=== PATIENT | male | born 1935 | race Caucasian/White ===

== ENCOUNTER 2016-09-24 10:34 | Inpatient (IN) | payer OTHER ==
[~2016-09-24] VITALS: Ht 185.4 cm; Wt 84.1 kg
[~2016-09-24 10:34] MED LIST: AMIODARONE HCL200 MG PO; ASPIR-LOW81 MG PO; COLACE100 MG PO; COUMADIN,JANTO2.5 MG PO; DIGOX125 MCG PO; DIOVAN HCT 11 TABLE1 PO; DIOVAN HCT 80-1 EACH PO; ESOMEPRAZOLE MA40 MG PO; FLOMAX0.4 MG PO; LANOXIN,DIGI0.125 MG PO; LANOXIN125 MCG PO; LOVENOX40 MG/0.4 PO; METAMUCIL POWD798 GM PO; MIRALAX255 GM PO; NEXIUM40 MG PO; OXYCODONE5 MG PO; PRADAXA150 MG PO; PRAVASTATIN SOD40 MG PO; PRESERVISIO1 CAPSULE PO; PRESERVISION T1 EACH PO; SENOKOT,SENN1 TABLET PO; SIMVASTATIN10 M1 PO; TAMSULOSIN HCL0.4 MG PO; TYLENOL 8 HOUR650 MG PO; VALSARTAN-HCTZ1 EAC2 PO; VITAMIN B-1250 MG PO
[2016-09-24 12:36] LABS: EOSINOPHIL (%) 0.2 % (0-5); HEMATOCRIT 49.5 % (38.0-50.0); IMMATURE GRANULOCYTE (%) 0.4 % (0.0-0.7); INSTRUMENT ABS NEUTROPHIL CT 9.5 K/uL; LYMPHOCYTE COUNT 0.8 K/uL (1.0-2.8); MCH 33.5 PG (29.0-34.0); MCHC 33.9 G/DL (30.0-36.0); MCV 98.8 FL (86-99); MEAN PLAT.VOLUME 9.6 uM^3 (9.0-12.4); MONOCYTE (%) 5.5 % (3-12); MONOCYTE COUNT 0.6 K/uL (0-0.8); NEUTROPHIL (%) 86.3 % (45-76); NEUTROPHIL COUNT 9.5 K/uL (1.8-6.4); PLATELET COUNT 114 K/uL (156-360); RBC DIS.WIDTH-CV 12.6 % (11.8-14.6); RBC DIS.WIDTH-SD 45.9 % (39-53); RED BLOOD COUNT 5.01 M/uL (4.00-5.50)
[2016-09-24 12:50] LABS: CHLORIDE 92 mEq/L (99-109); POTASSIUM 3.4 mEq/L (3.7-5.4); SODIUM 129 mEq/L (136-147)
[2016-09-24 13:23] LABS: GLUCOSE 113 mg/dL (70-99)
[2016-09-24 13:24] LABS: ANION GAP 9 MEQ/L (2-14)
[2016-09-24 13:25] LABS: TOTAL BILIRUBIN 1.6 mg/dL (0.0-1.0)
[2016-09-24 13:26] LABS: ALKALINE PHOSPHATASE 52 IU/L (3-129)
[2016-09-24 13:27] LABS: GFR ESTIMATE (CALCULATED) > 59 mL/min/
[2016-09-24 13:28] LABS: UREA NITROGEN (BUN) 20 mg/dL (9-23)
[2016-09-24] MEDS ORDERED: XARELTO20 MG PO (16:49)
[2016-09-24] MEDS ORDERED: VITAMIN B122500 MCG PO (16:50)
[2016-09-25 00:10] VITALS: BP 136/82
[2016-09-25 06:51] LABS: HEMATOCRIT 46.1 % (38.0-50.0); MCH 33.7 PG (29.0-34.0); MCHC 33.6 G/DL (30.0-36.0); MCV 100.2 FL (86-99); MEAN PLAT.VOLUME 10.2 uM^3 (9.0-12.4); PLATELET COUNT 99 K/uL (156-360); RBC DIS.WIDTH-CV 12.8 % (11.8-14.6); RBC DIS.WIDTH-SD 47.6 % (39-53); WHITE BLOOD COUNT 8.2 K/uL (4.1-10.2)
[2016-09-25 07:13] LABS: ANION GAP 6 MEQ/L (2-14); CHLORIDE 101 MEQ/L (99-109); GFR ESTIMATE (CALCULATED) > 59 mL/min/; GLUCOSE 107 mg/dL (70-99); SAMPLE HEMOLYSIS CHECK 0; SAMPLE ICTERIC CHECK 0; SAMPLE LIPEMIA CHECK 0; UREA NITROGEN (BUN) 15 mg/dL (9-23)
[2016-09-25 07:14] LABS: POTASSIUM 4.1 MEQ/L (3.7-5.4); SODIUM 139 MEQ/L (136-147)
[2016-09-25 07:43] VITALS: BP 127/69
[2016-09-25 14:29] LABS: C DIFF TOXIN ND (NEGATIVE)
[2016-09-25 16:42] VITALS: BP 127/77
[2016-09-25 22:47] VITALS: BP 97/53
[2016-09-26 06:08] LABS: MCH 34.1 PG (29.0-34.0); MCHC 33.6 G/DL (30.0-36.0); MCV 101.4 FL (86-99); MEAN PLAT.VOLUME 10.6 uM^3 (9.0-12.4); PLATELET COUNT 92 K/uL (156-360); RBC DIS.WIDTH-CV 12.7 % (11.8-14.6); RBC DIS.WIDTH-SD 47.8 % (39-53); RED BLOOD COUNT 4.34 M/uL (4.00-5.50); WHITE BLOOD COUNT 9.1 K/uL (4.1-10.2)
[2016-09-26 06:31] LABS: ANION GAP 6 MEQ/L (2-14); CHLORIDE 99 MEQ/L (99-109); GFR ESTIMATE (CALCULATED) > 59 mL/min/; GLUCOSE 100 mg/dL (70-99); POTASSIUM 3.7 MEQ/L (3.7-5.4); SAMPLE HEMOLYSIS CHECK 0; SAMPLE ICTERIC CHECK 0; SAMPLE LIPEMIA CHECK 0; SODIUM 137 MEQ/L (136-147); UREA NITROGEN (BUN) 14 mg/dL (9-23)
[2016-09-26 08:41] VITALS: BP 113/58
[2016-09-26 17:40] VITALS: BP 115/71
[2016-09-26 22:48] VITALS: BP 116/59
[2016-09-27 06:33] LABS: HEMATOCRIT 43.9 % (38.0-50.0); MCH 33.8 PG (29.0-34.0); MCHC 33.3 G/DL (30.0-36.0); MCV 101.6 FL (86-99); MEAN PLAT.VOLUME 10.3 uM^3 (9.0-12.4); PLATELET COUNT 85 K/uL (156-360); RBC DIS.WIDTH-CV 12.7 % (11.8-14.6); RBC DIS.WIDTH-SD 47.7 % (39-53); RED BLOOD COUNT 4.32 M/uL (4.00-5.50); WHITE BLOOD COUNT 5.9 K/uL (4.1-10.2)
[2016-09-27 06:54] LABS: ANION GAP 7 MEQ/L (2-14); CHLORIDE 104 MEQ/L (99-109); GFR ESTIMATE (CALCULATED) > 59 mL/min/; GLUCOSE 96 mg/dL (70-99); POTASSIUM 3.7 MEQ/L (3.7-5.4); SAMPLE HEMOLYSIS CHECK 0; SAMPLE ICTERIC CHECK 0; SAMPLE LIPEMIA CHECK 0; SODIUM 143 MEQ/L (136-147); UREA NITROGEN (BUN) 11 mg/dL (9-23)
[2016-09-27 07:16] VITALS: BP 126/69
[2016-09-27] MEDS ORDERED: CIPRO500 MG PO (11:00)
[2016-09-27] MEDS ORDERED: FLAGYL500 MG PO (11:01)
== END 2016-09-27 12:45 | disposition home or self-care (01) | DRG 392 ==
LOC: EME 10:34 → EDOF 16:12 → 5EAST 17:49
PROVIDERS: Emergency Medicine; Internal Medicine; Nurse Practitioner Family
DX: A09 Infectious gastroenteritis and colitis, unspecified (principal); I48.2 Chronic atrial fibrillation; Z79.01 Long term (current) use of anticoagulants; N40.0 Benign prostatic hyperplasia without lower urinary tract symptoms; I10 Essential (primary) hypertension; K22.70 Barrett's esophagus without dysplasia; E87.1 Hypo-osmolality and hyponatremia; E87.6 Hypokalemia; R10.30 Lower abdominal pain, unspecified
CPT/HCPCS: 74000; 74020; 74177; 80048; 80053; 83605; 83690; 85025; 85027; 86900; 86901; 87040; 87493; 87506; 94799; 99281; 99285; J0744; J2270; J2405; J7030; S0030